=== PATIENT | female | born 1950 | race Caucasian/White ===

== ENCOUNTER 2024-01-17 13:42 | Observation (INO) ==
--- NOTE | 2024-01-17 14:14 | DR.GENAD ---
HPI Time Seen Time Seen by Provider: 01/17/24 14:12 PCP Primary Care Physician: De La Paz Complaint/Symptoms Chief Complaint Doctors Comments: 73-year-old female, history of coronary artery disease, complains of increasing dyspnea and productive cough for the past 48 hours, accompanied by headache, nausea, body aches and sore throat. Denies other complaints. Chief Complaint:: Pt states Thursday night she started coughing, had a headache, nausea without vomiting and her neck and shouders are achey. Denies fever or diarrhea. Pt states she's been checking her O2 at home and it ranges from 93-95. Pt is scheduled for a heart cath on Thursday in [place]. Source History Provided: Patient Mode of Arrival Mode of Arrival: Ambulatory Timing Onset of Chief Complaint: 01/15/24 PMH PMH Past Medical History: Yes Past Medical History: Arthritis, Coronary Artery Disease, Diabetes, Dysli pidemia, Hypertension and Hypothyroidism Past Surgical History: Yes Surgical History: Appendectomy, Hysterectomy, Ortho Surgery and Tonsillectomy Past Surgical History Comment: Carpal tunnel, neck ortho, back ortho Family History History of Family Medical Conditions: Yes Family Medical History: Diabetes Mellitus, Cancer, Heart Failure and Hypertension Social History Type of Tobacco Use: None Alcohol Use: None Do you use any recreational Drugs:: No Lives With: Family Lives Where: Home Infectious screening Have you traveled outside the country in the last 6 months?: No Isolation: Standard PE Vital Signs Vitals: Vital Signs Temperature 97.8 F Pulse Rate 77 Respiratory Rate 22 Blood Pressure 124/60 O2 Sat by Pulse Oximetry 95 General Limitations: No Limitations General Appearance: Alert and In No Apparent Distress Head Head Exam: Normal Inspection Eyes Eye exam: Normal Appearance ENT ENT Exam: Normal Exam External Ear Exam: Normal External Inspection TM/Canal Exam: Bilateral: Normal Nose Exam: Normal Nose Exam Mouth Exam: Normal Inspection Throat Exam: Normal Inspection Neck Neck Exam: Normal Inspection Chest Chest Inspection: Normal Inspection Respiratory Respiratory Exam: Normal Lung Sounds Bilat Respiratory Exam: Bilateral: Clear to Auscultation Cardiovascular Cardiovascular Exam: Regular Rate and Normal Rhythm Extremities Extremities Exam: negative Normal Inspection Back Back Exam: Normal Inspection Neurologic Neurological Exam: Alert and Oriented X3 Psychiatric Psychiatric Exam: Normal Affect and Normal Mood Skin Skin Exam: Warm, Dry, Intact and Normal Color ROR Labs Reviewed 01/17/24 14:31 01/17/24 14:31 Laboratory: WBC 7.9 X10^3/uL (3.6-10.0) 01/17/24 14:31 RBC 3.62 X10^6/uL (3.5-5.4) 01/17/24 14:31 Hgb 10.5 g/dL (12.0-16.0) L 01/17/24 14: Hct 31.0 % (36.0-47.0) L 01/17/24 14: MCV 85.7 fL (80.0-100.0) 01/17/24 14:31 MCH 28.9 pg (27.0-34.0) 01/17/24 14: MCHC 33.8 g/dL (33.0-35.0) 01/17/24 14: RDW 14.9 % (11.6-16.5) 01/17/24 14: Plt Count 142 X10^3/uL (150.0-450.0) L 01/17/24 14: MPV 8.3 fL (7.4-11.0) 01/17/24 14: Neut % (Auto) 87.0 % (42.0-75.0) H 01/17/24 14: Lymph % (Auto) 7.7 % (21.0-51.0) L 01/17/24 14: [place] % (Auto) 3.1 % (0.0-13.0) 01/17/24 14: Eos % (Auto) 1.5 % (0.9-2.9) 01/17/24 14: Baso % (Auto) 0.7 % (0.2-1.0) 01/17/24 14:31 Neut # (Auto) 6.8 x10^3/uL (2.2-4.8) H 01/17/24 14:31 Lymph # (Auto) 0.6 X10^3/uL (1.3-2.9) L 01/17/24 14:31 [place] # (Auto) 0.2 x10^3/uL (0.3-0.8) L 01/17/24 14: Eos # (Auto) 0.1 x10^3/uL (0.0-0.2) 01/17/24 14:31 Baso # (Auto) 0.1 X10^3/uL (0.0-0.1) 01/17/24 14:31 Absolute Nucleated RBC 0.0 /100WBC 01/17/24 14:31 Sodium 143 mmol/L (136-145) 01/17/24 14:31 Corrected Sodium 144 mmol/L (136-145) 01/17/24 14:31 Potassium 3.6 mmol/L (3.5-5.1) 01/17/24 14:31 Chloride 106 mmol/L (98-107) 01/17/24 14:31 Carbon Dioxide 25.6 mmol/L (21-32) 01/17/24 14:31 BUN 10 mg/dL (7-18) 01/17/24 14:31 Creatinine 1.00 mg/dL (0.55-1.02) 01/17/24 14:31 Est GFR (MDRD) Af Amer > 60 (>60) 01/17/24 14:31 Est GFR (MDRD) Non-Af 58 (>60) L 01/17/24 14:31 Glucose 121 mg/dL (65-99) H 01/17/24 14:31 Calcium 8.6 mg/dL (8.5-10.1) 01/17/24 14:31 SARS-CoV-2 (PCR) Negative (NEGATIVE) 01/17/24 14:16 Influenza Type A (PCR) Negative (NEGATIVE) 01/17/24 14:16 Influenza Type B (PCR) Negative (NEGATIVE) 01/17/24 14:16 RSV (PCR) Negative (NEGATIVE) 01/17/24 14:16 S. pyogenes (TEM-PCR) Not detected (NOT DETECT) 01/17/24 14:16 Opioid Opioid Risk Tool Age (Bubba box if 16-45): No History of Preadolescent Sexual Abuse: No Total: 0 Total Score Risk Category: Low Risk Copyright: Rigo AYALA predicting aberrant behaviors Discharge Plan Diagnosis Discharge Problem: Pulmonary edema, Hypoxia, Pericardial effusion Discharge Plan Patient Disposition: 09 ADMITTED INPATIENT Condition: Stable Prescriptions: No Action Aspirin 81 MG Tab 81 mg PO DAILY glipizide 10 MG tablet 10 mg PO BID fexofenadine 180 MG tablet 180 mg PO DAILY PRN levothyroxine 75 MCG tablet 75 mcg PO DAILY pantoprazole 40 MG tablet,delayed release (DR/EC) 40 mg PO DAILY carvedilol 25 mg tablet 25 mg PO BID ropinirole 3 mg tablet 3 mg PO BID ropinirole 3 mg tablet 3 mg PO BID pioglitazone 45 mg tablet 45 mg PO QDAY isosorbide mononitrate 120 mg tablet extended release 24 hr 120 mg PO QDAY amlodipine 10 mg tablet 10 mg PO QDAY montelukast 10 mg tablet 10 mg PO QDAY ezetimibe 10 mg tablet 10 mg PO QPM Health Concerns: Post Hospitalization: new medications and changes needed to prevent readmission or further decline. Pt educated and given instructions on all concerns. Plan of Treatment: Continue with present treatment and follow up plan. Pt is to keep follow up appointment as instructed and take medications as ordered. Orders to Discharge Patient Discharge Orders: Transfer (Routine); Ordered 01/17/24 Ordered By: Renan Helton Follow ups/Referrals Follow ups/Referrals: HUE DE LA PAZ [Primary Care Provider] - 3 days Instructions Stand Alone Forms: Post Hospital Follow Up Care
--- NOTE | 2024-01-17 14:32 | EKG ---
Test Reason : Dyspnea Blood Pressure : */* mmHG Vent. Rate : 69 BPM Atrial Rate : 69 BPM P-R Int : 196 ms QRS Dur : 94 ms QT Int : 428 ms P-R-T Axes : 65 -3 -9 degrees QTc Int : 458 ms Normal sinus rhythm Cannot rule out Anterior infarct , age undetermined Nonspecific T wave abnormality Abnormal ECG No previous ECGs available Confirmed by Manoj Gill MD ([id number]) on 01/18/2024 7:29:25 AM Referred By: Confirmed By: Manoj Gill MD
[2024-01-17 14:39] LABS: BASOPHILS # (AUTO) 0.1 X10^3/uL (0.0-0.1); BASOPHILS % (AUTO) 0.7 % (0.2-1.0); EOSINOPHILS # (AUTO) 0.1 x10^3/uL (0.0-0.2); EOSINOPHILS % (AUTO) 1.5 % (0.9-2.9); HEMOGLOBIN 10.5 g/dL (12.0-16.0); LYMPHOCYTES # (AUTO) 0.6 X10^3/uL (1.3-2.9); LYMPHOCYTES % (AUTO) 7.7 % (21.0-51.0); MEAN CORPUSCULAR HEMOGLOBIN 28.9 pg (27.0-34.0); MEAN CORPUSCULAR HGB CONC 33.8 g/dL (33.0-35.0); MEAN CORPUSCULAR VOLUME 85.7 fL (80.0-100.0); MEAN PLATELET VOLUME 8.3 fL (7.4-11.0); MONOCYTES # (AUTO) 0.2 x10^3/uL (0.3-0.8); MONOCYTES % (AUTO) 3.1 % (0.0-13.0); NEUTROPHILS # (AUTO) 6.8 x10^3/uL (2.2-4.8); PLATELET COUNT 142 X10^3/uL (150.0-450.0); RED BLOOD COUNT 3.62 X10^6/uL (3.5-5.4); RED CELL DISTRIBUTION WIDTH 14.9 % (11.6-16.5); WHITE BLOOD COUNT 7.9 X10^3/uL (3.6-10.0)
[2024-01-17 14:43] LABS: BLOOD UREA NITROGEN 10 mg/dL (7-18); CALCIUM 8.6 mg/dL (8.5-10.1); CARBON DIOXIDE 25.6 mmol/L (21-32); CHLORIDE 106 mmol/L (98-107); COR NA(FOR HYPERGLY) 144 mmol/L (136-145); GLUCOSE 121 mg/dL (65-99); POTASSIUM 3.6 mmol/L (3.5-5.1); SODIUM 143 mmol/L (136-145); eGFR NON BLACK RACES 58 (>60)
[2024-01-17 14:59] LABS: STREP A BY PCR NOT DETECTED (NOT DETECT)
[2024-01-17] MEDS ORDERED: OMNIPAQUE 350 mg/mL 100 mL BTL 100 ML ONE (16:09)
--- NOTE | 2024-01-17 18:14 | CT ---
EXAM:CTA, CHESTHISTORY:hypoxia; hypoxiaCOMPARISON:None.TECHNIQUE:Followi ng the intravenous administration of iodinated contrast, spiral CT imaging was performed through the chest and axial, coronal, and sagittal CT images were generated. Multi planar 3D MIP images were also generated.FINDINGS:Heart size is mildly enlarged. There is a [id number] pericardial effusion. There is atherosclerosis in the LAD, circumflex, and RCA. Main pulmonary artery is normal in caliber. The resolution of the smaller vessels is suboptimal due to respiratory motion and suboptimal enhancement. Within the limits of the exam there is no convincing pulmonary embolus. There is atherosclerosis of the aortic arch but no aneurysm or dissection. There is no pathologic adenopathy. The airways are clear. There is some bronchial wall thickening. There is abnormal interstitial prominence compatible with interstitial edema. There is dependent atelectasis. There are small bilateral pleural effusions. There is a moderate hiatal hernia. The upper abdominal structures are grossly unremarkable. There is no worrisome bone marrow lesion.IMPRESSION:1. Cardiomegaly and pericardial effusion.2. Suboptimal exam for pulmonary embolus but no embolus identified.3. Interstitial edema, basilar atelectasis, and small pleural effusions.4. Moderate hiatal hernia.THIS IS AN ELECTRONICALLY VERIFIED FINAL [id number]/17/2024 6:10 PM - Electronically signed by Petey Elizabeth MD
[2024-01-17] MEDS: LASIX IVP ONE (18:57)
[2024-01-17 20:48] VITALS: BMI 36.7
[2024-01-17] MEDS: REQUIP PO SCH (21:19)
[2024-01-17] MEDS: TYLENOL 325 MG TAB PO PRN (22:01)
[2024-01-18 06:08] LABS: BASOPHILS % (AUTO) 0.9 % (0.2-1.0); EOSINOPHILS # (AUTO) 0.2 x10^3/uL (0.0-0.2); EOSINOPHILS % (AUTO) 2.9 % (0.9-2.9); HEMATOCRIT 30.4 % (36.0-47.0); LYMPHOCYTES # (AUTO) 1.2 X10^3/uL (1.3-2.9); LYMPHOCYTES % (AUTO) 21.4 % (21.0-51.0); MEAN CORPUSCULAR HEMOGLOBIN 28.1 pg (27.0-34.0); MEAN CORPUSCULAR HGB CONC 33.1 g/dL (33.0-35.0); MEAN PLATELET VOLUME 8.6 fL (7.4-11.0); MONOCYTES # (AUTO) 0.4 x10^3/uL (0.3-0.8); MONOCYTES % (AUTO) 7.5 % (0.0-13.0); NEUTROPHILS # (AUTO) 3.6 x10^3/uL (2.2-4.8); NEUTROPHILS % (AUTO) 67.3 % (42.0-75.0); PLATELET COUNT 148 X10^3/uL (150.0-450.0); RED BLOOD COUNT 3.57 X10^6/uL (3.5-5.4); RED CELL DISTRIBUTION WIDTH 14.6 % (11.6-16.5); WHITE BLOOD COUNT 5.4 X10^3/uL (3.6-10.0)
--- NOTE | 2024-01-18 06:09 | RAD ---
EXAM:Portable chestHISTORY:Shortness of breath, fever, nauseaCOMPARISON:04/24/2023FINDINGS:Hear t is enlarged. No congestive heart failure is noted. Dianne are normal. Aorta is calcified. Lung douglas are clear. No pleural effusions identified. Bony thorax is unremarkable. Cardiomegaly without congestive heart failureNo acute infiltratesIMPRESSION:THIS IS AN ELECTRONICALLY VERIFIED FINAL [id number]/18/2024 6:06 AM - Electronically signed by Chris Forman MD
[2024-01-18] MEDS: ULTRAM PO PRN (06:11)
[2024-01-18 06:21] LABS: ALANINE AMINOTRANSFERASE 12 Units/L (12-78); ALBUMIN 3.2 g/dL (3.4-5.0); ALKALINE PHOSPHATASE 49 Units/L (46-116); ASPARTATE AMINO TRANSFERASE 13 Units/L (15-37); BLOOD UREA NITROGEN 8 mg/dL (7-18); CALCIUM 8.5 mg/dL (8.5-10.1); CARBON DIOXIDE 28.9 mmol/L (21-32); CHLORIDE 103 mmol/L (98-107); COR CA(FOR HYPOALB) 9.1 mg/dL (8.5-10.1); GLUCOSE 84 mg/dL (65-99); MAGNESIUM 1.3 mg/dL (2.0-2.9); SODIUM 143 mmol/L (136-145); TOTAL PROTEIN 6.5 g/dL (6.4-8.2); eGFR NON BLACK RACES 58 (>60)
[2024-01-18] MEDS ORDERED: CONSULT PHARMACY - POTASSIUM & MAGNESIUM XX SCH (07:00)
[2024-01-18] MEDS ORDERED: MAGNESIUM SULFATE 1 GRAM/100 mL PREMIX 1 G/100 ML BAG IV SCH (08:20)
[2024-01-18] MEDS ORDERED: MAG-OX TAB PO SCH (09:00)
[2024-01-18] MEDS: MAGNESIUM SULFATE 50% INJ VIAL 5 G in NS 500 ML IV 500 ML IV ONE (10:13)
[2024-01-18] MEDS: ACTOS PO SCH (10:16)
[2024-01-18] MEDS: K-DUR TAB 20 MEQ PO SCH (10:16)
[2024-01-18] MEDS: LASIX IVP SCH (10:16)
[2024-01-18] MEDS: LOVENOX INJ 40 MG SYR SC SCH (10:18)
[2024-01-18] MEDS: PROTONIX TAB 40 MG PO SCH (10:21)
[2024-01-18 16:07] VITALS: BP 132/61; PULSE 80; RESP 20; TEMP 98.6; O2SAT 96
--- NOTE | 2024-01-19 07:26 | RAD ---
EXAM:CHEST, 1 VIEWHISTORY:HYPOXIA;COMPARISON: 4FINDINGS:The cardiomediastinal silhouette is stable.Chronic appearing interstitial changes in the lungs. No acute airspace disease. No pneumothorax or effusion.No acute osseous abnormality.IMPRESSION:No acute cardiopulmonary disease.THIS IS AN ELECTRONICALLY VERIFIED FINAL [id number]/19/2024 7:23 AM - Electronically signed by Chris Forman MD
== END 2024-01-18 16:05 | disposition home or self-care (01) ==
LOC: ER 13:42 → MED/SURG 13:42
PROVIDERS: ADMIT Family Medicine; ATTEND Obstetrics & Gynecology Obstetrics
DX: I25.10 Atherosclerotic heart disease of native coronary artery without angina pectoris; E11.65 Type 2 diabetes mellitus with hyperglycemia; R51.9 Headache, unspecified; R06.02 Shortness of breath; Z03.818 Encounter for observation for suspected exposure to other biological agents ruled out; E03.8 Other specified hypothyroidism; R94.31 Abnormal electrocardiogram [ECG] [EKG]; K44.9 Diaphragmatic hernia without obstruction or gangrene; J01.80 Other acute sinusitis; E83.42 Hypomagnesemia; R09.02 Hypoxemia; E78.5 Hyperlipidemia, unspecified; J81.0 Acute pulmonary edema; E87.6 Hypokalemia; R06.09 Other forms of dyspnea; I10 Essential (primary) hypertension